=== PATIENT | male | born 1945 | race Caucasian/White ===

== ENCOUNTER 2023-04-27 18:56 | Emergency (ER) | payer OTHER ==
[~2023-04-27] VITALS: Ht 170.2 cm; Wt 88.5 kg
[2023-04-27 18:59] VITALS: BP 115/65; PULSE 71; RESP 18; TEMP 98.6; O2SAT 99
[2023-04-27 19:50] VITALS: BP 115/65; RESP 18; TEMP 98.6; O2SAT 99
== END 2023-04-27 19:50 ==
LOC: MED 18:56
DX: Z04.1 Encounter for examination and observation following transport accident (principal); V89.2XXA Person injured in unspecified motor-vehicle accident, traffic, initial encounter; Y93.89 Activity, other specified; Y92.89 Other specified places as the place of occurrence of the external cause; Y99.8 Other external cause status
CPT/HCPCS: 99283